=== PATIENT | female | born 1985 | race African-American/Black ===

== ENCOUNTER 2016-07-13 17:32 | Emergency (ER) | payer OTHER ==
[~2016-07-13] VITALS: Ht 160 cm; Wt 104.3 kg
[2016-07-13] MEDS ORDERED: FLON1SPR (17:45)
[2016-07-13] MEDS ORDERED: SING10TA32 PO (17:45)
[2016-07-13] MEDS ORDERED: ZOLO50TA PO (17:45)
[2016-07-13] MEDS ORDERED: BREO1INH INH (17:45)
[2016-07-13] MEDS ORDERED: IPRATROPIUM 0.5MG/ALBUTEROL 2.5MG INH SOL UD 3ML (DUONEB)(J7620) NEB ONE (18:00)
[2016-07-13] MEDS ORDERED: diphenhydrAMINE 25 MG CAP PO ONE (18:00)
[2016-07-13] MEDS ORDERED: methylPREDNISolone INJ 125 MG/2 ML VIAL (J2930) IM ONE (18:00)
[2016-07-13] MEDS ORDERED: PRED20TA PO (18:17)
[2016-07-13 18:20] VITALS: BP 130/80
== END 2016-07-13 18:26 | disposition home or self-care (01) ==
LOC: M ED 18:24
DX: R21 Rash and other nonspecific skin eruption (principal); L50.9 Urticaria, unspecified; J98.01 Acute bronchospasm; T78.40XA Allergy, unspecified, initial encounter; J45.909 Unspecified asthma, uncomplicated; Z79.899 Other long term (current) drug therapy; Z79.51 Long term (current) use of inhaled steroids; Z88.7 Allergy status to serum and vaccine; Z88.8 Allergy status to other drugs, medicaments and biological substances; F17.210 Nicotine dependence, cigarettes, uncomplicated
CPT/HCPCS: 94640; 96372; 99282; J2930

== ENCOUNTER → 2016-09-26 | Outpatient (CLI) | payer OTHER ==
[~2016-09-26] MED LIST: BREO1INH INH; CIPR5SUS PO; FLON1SPR; PRED20TA PO; SING10TA32 PO; SKEL800T97 PO; ZOLO50TA PO; ZYRT10CA PO
[2016-09-26 17:02] LABS: MEAN CORPUSCULAR HGB CONC 33.3 g/dl (32.0-36.5); RED CELL DISTRIBUTION WIDTH 14.2 % (11.5-14.5); WHITE BLOOD COUNT 6.4 K/mm3 (4.0-10.0)
[2016-09-26 17:39] LABS: ANION GAP 6 MEQ/L (8-16); BLOOD UREA NITROGEN 12 MG/DL (7-18); CALCIUM LEVEL 9.2 MG/DL (8.5-10.1); CARBON DIOXIDE LEVEL 31 MEQ/L (21-32); CHLORIDE LEVEL 99 MEQ/L (98-107); CREATININE FOR GFR 0.81 MG/DL (0.55-1.02); GLOMERULAR FILTRATION RATE > 60.0 (>60); GLUCOSE, FASTING 77 MG/DL (70-105); POTASSIUM SERUM 3.6 MEQ/L (3.5-5.1); SODIUM LEVEL 136 MEQ/L (136-145)
[2016-09-26 17:39] LABS: MICROSCOPIC INDICATED? MAN NO (NO)
[2016-09-26 17:40] LABS: ALBUMIN 3.8 GM/DL (3.2-5.2); ALBUMIN/GLOBULIN RATIO 1.27 (1.00-1.93); ALKALINE PHOSPHATASE 125 U/L (45-117); ALT/SGPT 29 U/L (12-78); AST/SGOT 13 U/L (15-37); BILIRUBIN,TOTAL 0.2 MG/DL (0.2-1.0); TOTAL PROTEIN 6.8 GM/DL (6.4-8.2)
== END ==
LOC: M LAB 16:17
PROVIDERS: ATTEND Surgery
DX: K80.20 Calculus of gallbladder without cholecystitis without obstruction (principal)

== ENCOUNTER → 2016-09-28 | Outpatient (CLI) | payer OTHER ==
--- NOTE | 2016-09-28 10:39 | REP ---
RIGHT UPPER QUADRANT ULTRASOUND: Real-time sonographic evaluation of the right upper quadrant is performed. Multiple gallstones are seen in the gallbladder. There is no gallbladder wall thickening or pericholecystic fluid. There is no intrahepatic or extrahepatic biliary dilatation, common bile duct measuring 5 mm in diameter. Liver and pancreas demonstrate homogeneous echotexture with no gross mass. Right kidney demonstrates no hydronephrosis or nephrolithiasis with normal size at 11.3 cm in length. IMPRESSION: Multiple gallstones in the gallbladder, appear mobile. No gallbladder wall thickening, pericholecystic fluid or biliary dilatation. Signed by Herebrt Cardenas MD 09/28/2016 03:27 P
== END ==
LOC: M RAD 08:37
PROVIDERS: ATTEND Surgery
DX: K80.20 Calculus of gallbladder without cholecystitis without obstruction (principal)

== ENCOUNTER 2016-09-30 06:09 | Day surgery (SDC) | payer OTHER ==
[~2016-09-30 06:09] MED LIST changes: -CIPR5SUS PO; -SKEL800T97 PO; -ZYRT10CA PO
[2016-09-30] MEDS ORDERED: SKEL800T97 PO (06:27)
[2016-09-30] MEDS ORDERED: ZYRT10CA PO (06:30)
[2016-09-30] MEDS ORDERED: PANTOPRAZOLE 40MG TAB (PROTONIX) PO ONE (07:30)
[2016-09-30] MEDS ORDERED: ONDANSETRON 4MG/2ML VIAL (J2405) IV ONE (07:30)
[2016-09-30] MEDS ORDERED: KETOROLAC 30 MG/ML VIAL (J1885) IV ONE (07:30)
[2016-09-30 07:32] LABS: CALCIUM OXALATE CRYSTALS MODERATE; CONTROL LINE UCG INT CTR LINE PRESENT
[2016-09-30 07:50] LABS: BASO % 0.3 % (0.0-1.0); EOS # 0.5 K/mm3 (0.0-0.50); EOS % 7.9 % (0.0-3.0); LARGE UNSTAINED CELL # 0.1 K/mm3 (0.0-0.4); LARGE UNSTAINED CELL % 0.9 % (0.0-4.0); LYMPH # 0.8 K/mm3 (1.5-4.5); LYMPH % 11.1 % (24.0-44.0); MEAN CORPUSCULAR HEMOGLOBIN 26.4 pg (27.0-33.0); MEAN CORPUSCULAR HGB CONC 32.6 g/dl (32.0-36.5); MEAN CORPUSCULAR VOLUME 80.9 fl (80.0-96.0); MONO # 0.2 K/mm3 (0.0-0.8); MONO % 3.7 % (0.0-5.0); NEUTROPHILS # 4.7 K/mm3 (1.8-7.7); NEUTROPHILS % 76.1 % (36.0-66.0); PLATELET COUNT, AUTOMATED 161 k/mm3 (150-450); RED CELL DISTRIBUTION WIDTH 14.5 % (11.5-14.5); WHITE BLOOD COUNT 6.2 K/mm3 (4.0-10.0)
[2016-09-30 07:58] LABS: CONTROL LINE HCG INT CTR LINE PRESENT
[2016-09-30 08:07] LABS: ALBUMIN 3.8 GM/DL (3.2-5.2); ALBUMIN/GLOBULIN RATIO 1.03 (1.00-1.93); ALKALINE PHOSPHATASE 116 U/L (45-117); ALT/SGPT 25 U/L (12-78); AMYLASE 76 U/L (25-115); ANION GAP 6 MEQ/L (8-16); AST/SGOT 16 U/L (15-37); BILIRUBIN,DIRECT 0.1 MG/DL (0.0-0.2); BILIRUBIN,TOTAL 0.3 MG/DL (0.2-1.0); BLOOD UREA NITROGEN 19 MG/DL (7-18); CARBON DIOXIDE LEVEL 30 MEQ/L (21-32); CHLORIDE LEVEL 103 MEQ/L (98-107); CREATININE FOR GFR 1.09 MG/DL (0.55-1.02); GLOMERULAR FILTRATION RATE > 60.0 (>60); GLUCOSE, FASTING 95 MG/DL (70-105); POTASSIUM SERUM 3.9 MEQ/L (3.5-5.1); SODIUM LEVEL 139 MEQ/L (136-145); TOTAL PROTEIN 7.5 GM/DL (6.4-8.2)
[2016-09-30] MEDS ORDERED: CIPROFLOXACIN 400 MG in APPROPRIATE DILUENT 1 EA IV ONE (08:45)
[2016-09-30] MEDS ORDERED: NS 1,000 ML IV ONE (09:00)
[2016-09-30] MEDS ORDERED: CONRAY-60 60% 50ML VIAL (Q9961) As Ordered ONE (10:50)
--- NOTE | 2016-09-30 10:52 | REP ---
REASON: Left-sided pain. COMPARISON: 09/15/2016, which was within normal limits. The lung bases are clear and unchanged. Today's examination shows left renal enlargement and perinephric stranding along with mild hydronephrosis and hydroureter. There is a calcification in the region of the left ureterovesical junction, but this is unchanged from the prior exam. There is mild periureteral edema, which has developed since the last exam. There is cholelithiasis status quo. Limited evaluation of the solid intra-abdominal organs show no gross abnormalities or significant changes from the prior exam. Limited evaluation of the pancreas, adrenal glands, and right kidney show no gross abnormalities or significant changes from the prior exam. Limited evaluation of the abdomen aorta and para-aortic regions show no gross abnormalities. Limited evaluation of the bowel loops and their mesenteries show no gross abnormalities. No free fluid or free air is seen in the abdomen or pelvis. The osseous structures are stable and intact. IMPRESSION: There has been the interim development of left renal enlargement with perinephric stranding and hydronephrosis with hydroureter and periureteral edema as described above. There is a 5 mm size calcification near the region of the left ureterovesical junction, but this is unchanged from the prior exam. This possibly represents a small calculus. I see no other reason for the aforementioned left renal collecting system and left renal findings. Clinical correlation is recommended. Consultation with urology may prove helpful if clinically indicated. Other findings as described above. Signed by Gen Pérez DO 09/30/2016 11:16 A
--- NOTE | 2016-09-30 11:05 | ER ---
DATE OF CONSULTATION: 09/30/2016 This 31-year-old female was evaluated in consultation as requested by Dr. Cardenas on 09/30/2016 for left renal colic. She presented with a three week history of intermittent left renal colic. It is her first stone episode. She has had intermittent episodes of gross hematuria and urgency. Prior to presentation, there was no history of voiding symptoms, gross hematuria, urinary tract infection, urolithiasis, flank pain or constitutional symptoms. PAST MEDICAL HISTORY: Significant for asthma, appendectomy and cholelithiasis. REVIEW OF SYSTEMS: Negative for diabetes, hypertension, cardiac or thyroid pathology, headaches, epilepsy, CVA, glaucoma, peptic ulcer disease, urolithiasis, or blood borne diseases. CURRENT MEDICATIONS: Include Breo inhaler, Zyrtec and Flonase. She is allergic to Topamax and human papillomavirus vaccination. Socially, she is and has four children. She is a nonsmoker, does not consume alcohol. Family history is significant for gout on the paternal side and hypertension, hypercholesterolemia, and coronary artery disease on the maternal side. PHYSICAL EXAMINATION: General examination revealed a comfortable individual. Her heart rate was 87, respiratory rate was 16, blood pressure was 111/80 and temperature was 98.1 degrees Fahrenheit. Palpation of the head and neck failed to reveal evidence of lymphadenopathy. Auscultation of the chest was clear with normal heart sounds. Examination of the back and abdomen were benign. A urinalysis (09/30/2016) demonstrated a pH of 6.0, with negative leukocytes and red blood cells. Nitrites were positive. Serum hematologic and biochemical indices determination (09/30/2016) demonstrated a hemoglobin of 13.0, leukocyte count of 6.2 and a creatinine of 1.1. Serum beta hCG (09/30/2016) is negative. Computed tomography of the abdomen and pelvis without intravenous contrast (09/30/2016) demonstrated a 5 mm left ureterovesical junction calculus with proximal hydroureteronephrosis. ASSESSMENT: 1. Left ureterovesical junction 5 mm calculus. 2. Left proximal hydroureteronephrosis. 3. Question urinary tract infection. 4. Asthma. 5. Cholelithiasis. PLAN: The above findings were discussed with the patient, nursing staff and emergentologist. Following nothing by mouth status, cystoscopy, left retrograde ureteropyelography and double J stent insertion will be performed. Following the procedure, the patient may be discharged home and will followup with urology with a KUB radiograph and office visit in one week. The patient understands that the double J stent is temporary in nature and must be removed. She also understands the risk of sepsis and failed double J stent insertion for the procedure. Should double J stent insertion be unsuccessful, left nephrostomy tube insertion by interventional radiology will be required. This would necessitate a transfer to [place] as no interventional radiology is available at [facility]. Should you require additional information, please do not hesitate to contact me. Thank you for the confidence of your referral.
[2016-09-30] MEDS ORDERED: LIDOCAINE 2% 5ML JELLY UROJET As Ordered ONE (11:22)
[2016-09-30] MEDS ORDERED: MIDAZOLAM INJ 2 MG/2 ML VIAL (J2250) As Ordered ONE (11:41)
[2016-09-30] MEDS ORDERED: PROPOFOL 200 MG/20 ML VIAL As Ordered ONE (11:41)
[2016-09-30] MEDS ORDERED: fentaNYL 100 MCG/2 ML INJECTION (J3010) As Ordered ONE (11:41)
[2016-09-30] MEDS ORDERED: LIDOCAINE 2% INJ 100 MG/5 ML SDV (FOR ANES.) As Ordered ONE (11:41)
[2016-09-30] MEDS ORDERED: METOCLOPRAMIDE INJ 10MG/2ML VIAL (J2765) As Ordered ONE (11:54)
[2016-09-30 12:10] VITALS: BP 111/60
--- NOTE | 2016-09-30 12:18 | ROOPDOC ---
[facility] Report Of Operation Report of Operation DATE OF PROCEDURE: 09/30/16 PREPROCEDURE DIAGNOSES: [Left 5mm UVJ stone; ?UTI]. POSTPROCEDURE DIAGNOSES: [Same]. PROCEDURE: [Cystoscopy, left RPG, JJ, fluoroscopy]. SURGEON: [Molina Blake], FIXED ROUTE OPERATOR: [Nil] ANESTHESIA: [MAC]. ESTIMATED BLOOD LOSS: Approximately [0] mL. COMPLICATIONS: [Nil]. MOLINA BLAKE MD Sep 30, 2016 12:18
[2016-09-30] MEDS ORDERED: CIPR5SUS PO (12:20)
[2016-09-30] MEDS ORDERED: ONDANSETRON 4MG/2ML VIAL (J2405) IV PRN (12:30)
[2016-09-30] MEDS ORDERED: NS 1,000 ML IV SCH (12:30)
[2016-09-30 12:40] VITALS: BP 115/71
--- NOTE | 2016-09-30 13:23 | RO ---
DATE OF PROCEDURE: 09/30/2016 PREOPERATIVE DIAGNOSES: 1. 5 mm ureterovesical junction calculus. 2. Question of urinary tract infection. POSTOPERATIVE DIAGNOSES: 1. 5 mm ureterovesical junction calculus. 2. Question of urinary tract infection. PROCEDURE: Cystoscopy, left retrograde ureteropyelography, #6 Grenadian universal double J stent insertion, fluoroscopy. SURGEON: Molina Gomze MD PATTERN CHAIN MAKER SUPERVISOR: ANESTHESIA: Monitored anesthesia care (MAC). COMPLICATIONS: None. ESTIMATED BLOOD LOSS: 0 mL. DESCRIPTION OF PROCEDURE: In lithotomy position, the patient was prepped and draped in the usual fashion. Plain fluoroscopy of the upper urinary tract failed to confirm the presence of a radiopaque calculus. A 22 Grenadian rigid cystoscope was advanced into the urinary bladder under direct vision. A urine specimen for culture and sensitivity was obtained . Coreas cystoscopy revealed normal ureteric orifices bilaterally. Normal urothelium. There was no evidence of tumor, active bleeding, or urolithiasis. A normal bladder neck and urethra were noted. A #5 Grenadian open ended ureteral catheter was used to intubate the left ureteric orifice. Retrograde ureteropyelography confirmed a narrow distal ureter with mild proximal hydroureteronephrosis. This is likely secondary to the distal ureteral calculus as noted by computed tomography. The retrograde was performed gently to minimize the risk of pyelovenous backflow. Under fluoroscopy, a 0.038 Glidewire was advanced up into the left renal pelvis under fluoroscopy. The #5 Grenadian open ended ureteral catheter was removed and a #6 Grenadian universal double J stent was advanced under fluoroscopy and direct vision. Its position was confirmed. Prior to removal of the instruments, the bladder was drained. At the conclusion of the procedure, sponge and instrument counts were correct. ESTIMATED BLOOD LOSS FOR PROCEDURE: 0 mL. In the recovery room, the patient was alert and stable. DISPOSITION: Strain urine. KUB radiography and office visit with urology in one week. Exit prescription (ciprofloxacin) provided. KANCHAN
--- NOTE | 2016-09-30 13:43 | REP ---
REASON: Double J stent catheter placement on the left. Multiple spot views of the abdomen and pelvis were obtained in my absentia during left-sided retrograde pyelography and double J stent catheter placement. Fluoroscopy utilized, 16 seconds. A double J stent catheter is seen on the left. The proximal portion of which is in the renal pelvic region and the distal portion in the urinary bladder. Signed by Gen Pérez DO 09/30/2016 03:13 P
== END 2016-09-30 16:00 | disposition home or self-care (01) ==
LOC: M ED 06:09 → M SDC 09:50 → M PED 12:21 → M SDC 16:00
PROVIDERS: ATTEND Urology
DX: N13.5 Crossing vessel and stricture of ureter without hydronephrosis (principal); J45.909 Unspecified asthma, uncomplicated; E66.9 Obesity, unspecified; Z79.899 Other long term (current) drug therapy; Z88.8 Allergy status to other drugs, medicaments and biological substances
CPT/HCPCS: 36415; 52332; 74176; 74420; 80048; 80076; 81001; 82150; 83690; 84703; 85025; 87086; 96361; 96375; 99284; C1769; C2617; J0744; J1885; J2250; J2405; J2765; J3010; Q9961

== ENCOUNTER → 2016-10-09 | Outpatient (CLI) | payer OTHER ==
[~2016-10-09] MED LIST changes: +CIPR5SUS PO; +SKEL800T97 PO; +ZYRT10CA PO
--- NOTE | 2016-10-09 10:21 | REP ---
Supine abdomen single AP view: Comparison is CT of the abdomen pelvis dated 09/30/2016. There is a left ureteral stent not present on the comparison CT, with the proximal and distal pigtails in satisfactory locations . No calcifications are identified. The bowel gas pattern is normal. The skeletal structures are unremarkable. Signed by Herbert Crowe MD 10/09/2016 10:13 A
== END ==
LOC: M SMT 09:39
PROVIDERS: ATTEND Urology
DX: N20.0 Calculus of kidney (principal)

== ENCOUNTER → 2016-10-09 | Outpatient (CLI) | payer OTHER ==
--- NOTE | 2016-10-09 11:18 | REP ---
CT of the abdomen pelvis without IV or bowel contrast: Comparison 09/30/2016. There is a left ureteral stent with the proximal and distal pigtails in satisfactory locations as an interval change. There is no left hydronephrosis. The previous left distal ureter and coronal calcification is no longer identified. The unenhanced right kidney and right ureter are unremarkable and unchanged. The visualized lung silveira are unremarkable. The unenhanced hepatic parenchyma is unremarkable. There may be tiny gallbladder calculi. This could be confirmed with ultrasound. The gallbladder is otherwise unremarkable. The unenhanced pancreas, spleen, adrenals, abdominal aorta, bowel and mesentery are unremarkable. The unenhanced renal parenchyma is unremarkable. Pelvis: The uterus, adnexa and bladder are unremarkable except for the left ureteral stent. There is no adenopathy or ascites. The bowel loops are unremarkable. There is surgical clips adjacent to the cecum. The patient indicates she has had appendectomy. Impression: The previous distal left ureteral calculus is no longer identified. The previous left hydronephrosis is no longer identified. There has been interim placement of a left ureteral stent. Signed by Herbert Crowe MD 10/09/2016 11:10 A
== END ==
LOC: M RAD 10:43
PROVIDERS: ATTEND Urology
DX: N20.0 Calculus of kidney (principal); Z96.0 Presence of urogenital implants
CPT/HCPCS: 74000; 74176; G0463